=== PATIENT | male | born 1935 | race Caucasian/White ===

== ENCOUNTER 2023-08-31 12:05 | Inpatient (IN) | payer MEDICARE ==
[~2023-08-31] VITALS: Ht 175.3 cm; Wt 99.0 kg
[2023-08-31 12:55] LABS: BASOPHILS # (AUTO) 0.1 X10'3 (0-0.2); BASOPHILS % (AUTO) 0.6 % (0-1); EOSINOPHILS % (AUTO) 0.2 % (0-6); HEMATOCRIT 39.7 % (42.0-52.0); HEMOGLOBIN 12.8 g/dl (14.0-17.9); LYMPHOCYTES # (AUTO) 0.9 X10'3 (1.1-4.8); LYMPHOCYTES % (AUTO) 4.4 % (21-51); MEAN CORPUSCULAR HEMOGLOBIN 30.5 PG (27.0-31.0); MEAN CORPUSCULAR HGB CONC 32.2 g/dL (33.0-36.5); MEAN CORPUSCULAR VOLUME 94.6 FL (78-98); MEAN PLATELET VOLUME 9.3 FL (7.4-10.4); MONOCYTES # (AUTO) 1.3 X10'3 (0-0.9); MONOCYTES % (AUTO) 6.5 % (2-12); NEUTROPHILS # (AUTO) 17.7 X10'3 (1.8-7.7); NEUTROPHILS % (AUTO) 88.3 % (42-75); PLATELET COUNT 216 X10'3 (140-440); RED CELL DISTRIBUTION WIDTH 14.7 % (11.5-14.5)
[2023-08-31 13:18] LABS: ANION GAP 14 (8-16); BLOOD UREA NITROGEN 36 MG/DL (7-18); BUN/CREATININE RATIO 16.3 (10.0-20.0); CALCIUM 9.7 MG/DL (8.5-10.1); CHLORIDE 107 MMOL/L (99-107); CREATININE 2.21 MG/DL (0.60-1.10); GLUCOSE 177 MG/DL (70-104); POTASSIUM 5.1 MMOL/L (3.5-5.1); PRO BRAIN NATRIURETIC PEPTIDE 1697 PG/ML (0-450); SODIUM 144 MMOL/L (135-145); TOTAL CARBON DIOXIDE 23.3 MMOL/L (24-32); eCRCL 14 ML/MIN; eGFR 28 ML/MIN
[2023-08-31] MEDS: CefTRIAXone/D5W-Rocephin 1gm 50 ML IV ONE (13:42)
[2023-08-31 14:28] LABS: ALANINE AMINOTRANSFERASE 27 U/L (12-78); ALBUMIN 3.6 G/DL (3.4-5.0); ALBUMIN/GLOBULIN RATIO 0.9 (1.1-1.5); ALKALINE PHOSPHATASE 80 IU/L (46-116); ASPARTATE AMINO TRANSFERASE 20 U/L (10-37); BILIRUBIN,DIRECT 0.1 MG/DL (0-0.3); BILIRUBIN,TOTAL 0.6 MG/DL (0.1-1.0); THYROID STIMULATING HORMONE 1.13 ulU/ml (0.34-4.50); TOTAL PROTEIN 7.7 G/DL (6.4-8.2)
[2023-08-31 14:45] LABS: BILIRUBIN,URINE NEGATIVE (Neg); CLARITY,URINE SLIGHTLY CLOUDY (Clear); COLOR,URINE YELLOW (Yellow); GLUCOSE, URINE 500 mg/dl (Neg); KETONES,URINE NEGATIVE (Neg); LEUKOCYTE ESTERASE ,URINE SMALL (Neg); NITRITES, URINE NEGATIVE (Neg); OCCULT BLOOD,URINE NEGATIVE (Neg); PH,URINE 5.5 (4.8-8.0); PROTEIN,URINE NEGATIVE (Neg); UROBILINOGEN,URINE 0.2 E.U/dL (0.2-1.0)
[2023-08-31 14:52] LABS: UA COLLECTION TYPE URINAL
[2023-08-31 15:01] LABS: SQUAMOUS EPITHELIAL CELL,UR FEW /LPF (FEW)
[2023-08-31 15:02] LABS: WBC,URINE 30-50 /HPF (0-4)
[2023-08-31 15:03] LABS: BACTERIA,URINE 2+ /HPF (Neg)
[2023-08-31] MEDS: normal saline 1000ML IV soln IVB ONE ×2 (18:17)
[2023-08-31] MEDS ORDERED: ondansetron/PF 4mg/2ml inj IV PRN (18:25)
[2023-08-31] MEDS ORDERED: magnesium Cl slow-release 64mg tablet PO PRN (18:25)
[2023-08-31] MEDS ORDERED: potassium Cl 20 mEq SR tablet PO PRN ×2 (18:25)
[2023-08-31] MEDS ORDERED: magnesium 2GM in 50ml NS 50 ML IV PRN (18:25)
[2023-08-31] MEDS ORDERED: mag hydrox/Alum hydrox/simeth 30ml oral suspension PO PRN (18:25)
[2023-08-31] MEDS ORDERED: magnesium hydroxide 30ml (MOM) UD suspension PO PRN (18:25)
[2023-08-31] MEDS ORDERED: magnesium 4gm in 100ml NS 100 ML IV PRN (18:25)
[2023-08-31] MEDS ORDERED: potassium Cl 40MEQ/1/2NS 520ml 520 ML IV PRN (18:25)
[2023-08-31] MEDS ORDERED: dextrose 50%-water 50ml dispensing syringe IV PRN ×2 (18:55)
[2023-08-31] MEDS ORDERED: DEXTROSE 15 GM of carb/4 tabs (each vial/BOTTLE has 4 tablets) PO PRN ×2 (18:55)
[2023-08-31] MEDS ORDERED: glucagon, human recombinant 1mg kit SUBCUT PRN (18:55)
[2023-08-31 19:15] LABS: HEMOGLOBIN A1C 6.9 % (4.5-6.2)
[2023-08-31] MEDS: morphine 2 MG/ML inj. syringe IV ONE (19:25)
[2023-08-31] MEDS: PERFLUTREN PROTEIN-A MICROSPHR (Optison) 0.22 MG/ML 3ML VIAL IV ONE (19:53)
[2023-08-31] MEDS: piperacillin/tazo 3.375gm/50ml 50 ML IV SCH (20:00)
[2023-08-31] MEDS: K and/or MAG REPLACEMENT MC SCH (20:00)
[2023-08-31] MEDS: docusate sod 100mg capsule PO SCH (20:00)
[2023-08-31] MEDS: normal saline 1000ml 1,000 ML IV SCH (20:07)
[2023-08-31] MEDS: heparin, porcine 5000 units/ml vial SQ SCH (20:07)
[2023-08-31] MEDS: insulin glargine (Lantus) pen - multi-dose SQ SCH (21:00)
[2023-08-31 22:00] VITALS: BP 135/65; PULSE 80; RESP 12; TEMP 98.4; O2SAT 92
[2023-08-31] MEDS: aspirin 81mg tab.chew PO ONE (23:27)
[2023-08-31 23:34] VITALS: PULSE 83; RESP 18; O2SAT 94
[2023-09-01] VITALS (10 sets, daily range): BP systolic 120–151; BP diastolic 56–80; PULSE 60–76; RESP 13–20; TEMP 97.7–98.7; O2SAT 92–100
[2023-09-01] MEDS ORDERED: LISI40TA13 PO (01:48)
[2023-09-01] MEDS ORDERED: GLIM4TAB7 PO (01:48)
[2023-09-01] MEDS ORDERED: GABA800T11 PO (01:48)
[2023-09-01] MEDS ORDERED: FLO0.4C PO (01:48)
[2023-09-01] MEDS ORDERED: MELO-100 PO (01:48)
[2023-09-01] MEDS ORDERED: FURO40TA4 PO (01:48)
[2023-09-01] MEDS ORDERED: DILT120T14 PO (01:48)
[2023-09-01] MEDS ORDERED: DONE5TAB7 PO (01:48)
[2023-09-01] MEDS: insulin Lispro (HumaLOG) vial - multi-dose SQ SCH (07:00)
[2023-09-01 07:07] LABS: BASOPHILS % (AUTO) 0.2 % (0-1); EOSINOPHILS % (AUTO) 0.1 % (0-6); HEMATOCRIT 36.2 % (42.0-52.0); HEMOGLOBIN 11.7 g/dl (14.0-17.9); LYMPHOCYTES # (AUTO) 1.5 X10'3 (1.1-4.8); MEAN CORPUSCULAR HEMOGLOBIN 31.1 PG (27.0-31.0); MEAN CORPUSCULAR HGB CONC 32.4 g/dL (33.0-36.5); MEAN CORPUSCULAR VOLUME 95.9 FL (78-98); MONOCYTES # (AUTO) 1.3 X10'3 (0-0.9); MONOCYTES % (AUTO) 7.4 % (2-12); NEUTROPHILS # (AUTO) 15.4 X10'3 (1.8-7.7); NEUTROPHILS % (AUTO) 84.3 % (42-75); PLATELET COUNT 173 X10'3 (140-440); RED BLOOD COUNT 3.78 X10'6 (4.70-6.10); RED CELL DISTRIBUTION WIDTH 14.9 % (11.5-14.5); WHITE BLOOD COUNT 18.2 X10'3 (4.5-11.0)
[2023-09-01 07:33] LABS: ALBUMIN 3.3 G/DL (3.4-5.0); ANION GAP 10 (8-16); BLOOD UREA NITROGEN 37 MG/DL (7-18); BUN/CREATININE RATIO 19.3 (10.0-20.0); CALCIUM 8.6 MG/DL (8.5-10.1); CHLORIDE 109 MMOL/L (99-107); CHOL/HDL RATIO 3.2 (0.00-4.99); CHOLESTEROL 159 MG/DL (0-200); CREATININE 1.92 MG/DL (0.60-1.10); GLUCOSE 177 MG/DL (70-104); HDL CHOLESTEROL 49 MG/DL (35-60); LDL CHOLESTEROL 80 MG/DL (50-100); MAGNESIUM 2.1 MG/DL (1.5-2.4); PHOSPHORUS 2.8 MG/DL (2.3-4.5); POTASSIUM 4.8 MMOL/L (3.5-5.1); SODIUM 142 MMOL/L (135-145); TOTAL CARBON DIOXIDE 23.4 MMOL/L (24-32); TRIGLYCERIDES 180 MG/DL (20-135); eCRCL 27 ML/MIN; eGFR 33 ML/MIN
[2023-09-01] MEDS ORDERED: CefTRIAXone/D5W-Rocephin 1gm 50 ML IV SCH (08:00)
[2023-09-01] MEDS: donepezil 5mg tablet PO SCH (08:45)
[2023-09-01] MEDS: gabapentin 400mg capsule PO SCH (08:45)
[2023-09-01] MEDS: lisinopril 20mg tablet PO SCH (08:49)
[2023-09-01] MEDS: furosemide 40mg tablet PO SCH (08:49)
[2023-09-01] MEDS: tamsulosin 0.4mg capsule PO SCH (08:55)
[2023-09-01] MEDS: nystatin 15 GM powder TP SCH (20:49)
[2023-09-02] VITALS (9 sets, daily range): BP systolic 130–159; BP diastolic 71–86; PULSE 62–72; RESP 9–19; TEMP 97–97.9; O2SAT 92–97
[2023-09-02] MEDS: acetaminophen 325mg tablet PO PRN (04:38)
[2023-09-02 06:52] LABS: BASOPHILS # (AUTO) 0.1 X10'3 (0-0.2); BASOPHILS % (AUTO) 0.7 % (0-1); EOSINOPHILS # (AUTO) 0.2 X10'3 (0-0.9); EOSINOPHILS % (AUTO) 1.7 % (0-6); HEMATOCRIT 35.4 % (42.0-52.0); HEMOGLOBIN 11.4 g/dl (14.0-17.9); LYMPHOCYTES # (AUTO) 1.2 X10'3 (1.1-4.8); LYMPHOCYTES % (AUTO) 9.7 % (21-51); MEAN CORPUSCULAR HEMOGLOBIN 30.8 PG (27.0-31.0); MEAN CORPUSCULAR HGB CONC 32.3 g/dL (33.0-36.5); MEAN CORPUSCULAR VOLUME 95.4 FL (78-98); MEAN PLATELET VOLUME 9.7 FL (7.4-10.4); MONOCYTES # (AUTO) 0.9 X10'3 (0-0.9); MONOCYTES % (AUTO) 7.7 % (2-12); NEUTROPHILS # (AUTO) 9.7 X10'3 (1.8-7.7); NEUTROPHILS % (AUTO) 80.2 % (42-75); PLATELET COUNT 177 X10'3 (140-440); RED BLOOD COUNT 3.71 X10'6 (4.70-6.10); RED CELL DISTRIBUTION WIDTH 14.6 % (11.5-14.5)
[2023-09-02 07:09] LABS: ALBUMIN 3.1 G/DL (3.4-5.0); ANION GAP 9 (8-16); BLOOD UREA NITROGEN 36 MG/DL (7-18); BUN/CREATININE RATIO 19.1 (10.0-20.0); CALCIUM 8.8 MG/DL (8.5-10.1); CHLORIDE 105 MMOL/L (99-107); CREATININE 1.88 MG/DL (0.60-1.10); GLUCOSE 164 MG/DL (70-104); MAGNESIUM 2.1 MG/DL (1.5-2.4); PHOSPHORUS 2.4 MG/DL (2.3-4.5); POTASSIUM 4.3 MMOL/L (3.5-5.1); SODIUM 139 MMOL/L (135-145); TOTAL CARBON DIOXIDE 24.8 MMOL/L (24-32); eCRCL 28 ML/MIN; eGFR 34 ML/MIN
[2023-09-02] MEDS: gabapentin 300mg capsule PO SCH (07:25)
[2023-09-02] MEDS: insulin Lispro (HumaLOG) vial - multi-dose SQ SCH ×2 (13:42→17:00)
[2023-09-03 02:00] VITALS: BP 159/88; PULSE 64; RESP 18; TEMP 97.2; O2SAT 98
[2023-09-03 06:00] VITALS: BP 156/85; PULSE 56; RESP 16; TEMP 97.7; O2SAT 94
[2023-09-03 07:03] LABS: BASOPHILS % (AUTO) 0.4 % (0-1); EOSINOPHILS # (AUTO) 0.4 X10'3 (0-0.9); EOSINOPHILS % (AUTO) 4.5 % (0-6); HEMATOCRIT 36.8 % (42.0-52.0); HEMOGLOBIN 12.2 g/dl (14.0-17.9); LYMPHOCYTES # (AUTO) 1.4 X10'3 (1.1-4.8); LYMPHOCYTES % (AUTO) 16.3 % (21-51); MEAN CORPUSCULAR HEMOGLOBIN 31.4 PG (27.0-31.0); MEAN CORPUSCULAR HGB CONC 33.1 g/dL (33.0-36.5); MEAN CORPUSCULAR VOLUME 94.9 FL (78-98); MEAN PLATELET VOLUME 9.4 FL (7.4-10.4); MONOCYTES # (AUTO) 0.8 X10'3 (0-0.9); MONOCYTES % (AUTO) 9.3 % (2-12); NEUTROPHILS # (AUTO) 5.8 X10'3 (1.8-7.7); NEUTROPHILS % (AUTO) 69.5 % (42-75); PLATELET COUNT 203 X10'3 (140-440); RED BLOOD COUNT 3.88 X10'6 (4.70-6.10); RED CELL DISTRIBUTION WIDTH 14.6 % (11.5-14.5); WHITE BLOOD COUNT 8.4 X10'3 (4.5-11.0)
[2023-09-03 07:09] LABS: ALBUMIN 3.3 G/DL (3.4-5.0); ANION GAP 9 (8-16); BLOOD UREA NITROGEN 30 MG/DL (7-18); BUN/CREATININE RATIO 18.2 (10.0-20.0); CALCIUM 9.3 MG/DL (8.5-10.1); CHLORIDE 108 MMOL/L (99-107); CREATININE 1.65 MG/DL (0.60-1.10); GLUCOSE 138 MG/DL (70-104); MAGNESIUM 2.1 MG/DL (1.5-2.4); PHOSPHORUS 2.8 MG/DL (2.3-4.5); SODIUM 142 MMOL/L (135-145); TOTAL CARBON DIOXIDE 24.8 MMOL/L (24-32); eCRCL 32 ML/MIN; eGFR 40 ML/MIN
[2023-09-03 08:00] VITALS: RESP 15; O2SAT 96
[2023-09-03] MEDS ORDERED: FURO40TA4 PO (09:18)
[2023-09-03] MEDS ORDERED: LISI40TA13 PO (09:18)
[2023-09-03] MEDS ORDERED: LEVO250T74 PO (09:18)
[2023-09-03] MEDS ORDERED: DILT120T14 PO (09:18)
[2023-09-03 09:55] VITALS: PULSE 68; RESP 14; O2SAT 94
[2023-09-03 11:00] VITALS: BP 177/65; PULSE 70; RESP 15; TEMP 97.7; O2SAT 100
== END 2023-09-03 12:06 | disposition home health service (06) | DRG 698 ==
LOC: ER 12:05 → ED HOLD 18:25 → EDBEDREQ 20:20 → PCU 3S 21:25
PROVIDERS: ADMIT Family Medicine; ATTEND Family Medicine
DX: T83.518A Infection and inflammatory reaction due to other urinary catheter, initial encounter (principal); A41.9 Sepsis, unspecified organism; G93.41 Metabolic encephalopathy; I50.31 Acute diastolic (congestive) heart failure; N17.0 Acute kidney failure with tubular necrosis; N30.00 Acute cystitis without hematuria; G89.29 Other chronic pain; M54.9 Dorsalgia, unspecified; G47.30 Sleep apnea, unspecified; E11.42 Type 2 diabetes mellitus with diabetic polyneuropathy; I11.0 Hypertensive heart disease with heart failure; Z87.891 Personal history of nicotine dependence; Z99.81 Dependence on supplemental oxygen; B95.2 Enterococcus as the cause of diseases classified elsewhere
CPT/HCPCS: 36415; 71045; 80048; 80061; 80076; 81001; 82948; 83036; 83605; 83735; 83880; 84100; 84145; 84443; 84484; 85025; 87040; 87077; 87088; 87186; 93005; 93306; 93926; 94760; 97161; 97530; 99285; A4349; A5200; A6590; G0378; J0696; J1644; J1815; J2270; J2543; J7030

== ENCOUNTER 2023-09-14 14:40 | Emergency (ER) | payer MEDICARE ==
[~2023-09-14] VITALS: Ht 175.3 cm; Wt 93.6 kg
[~2023-09-14 14:40] MED LIST: DILT120T14 PO; DONE5TAB7 PO; FLO0.4C PO; FURO40TA4 PO; GABA800T11 PO; GLIM4TAB7 PO; LEVO250T74 PO; LISI40TA13 PO; MELO-100 PO
[2023-09-14] MEDS ORDERED: normal saline 1000ML IV soln IVB ONE (15:20)
[2023-09-14 16:05] LABS: BASOPHILS # (AUTO) 0.1 X10'3 (0-0.2); BASOPHILS % (AUTO) 1.1 % (0-1); EOSINOPHILS # (AUTO) 0.4 X10'3 (0-0.9); EOSINOPHILS % (AUTO) 5.5 % (0-6); HEMATOCRIT 34.3 % (42.0-52.0); HEMOGLOBIN 11.5 g/dl (14.0-17.9); LYMPHOCYTES # (AUTO) 1.5 X10'3 (1.1-4.8); LYMPHOCYTES % (AUTO) 19.3 % (21-51); MEAN CORPUSCULAR HEMOGLOBIN 31.5 PG (27.0-31.0); MEAN CORPUSCULAR HGB CONC 33.4 g/dL (33.0-36.5); MEAN CORPUSCULAR VOLUME 94.3 FL (78-98); MEAN PLATELET VOLUME 9.1 FL (7.4-10.4); MONOCYTES # (AUTO) 0.8 X10'3 (0-0.9); MONOCYTES % (AUTO) 9.5 % (2-12); NEUTROPHILS # (AUTO) 5.1 X10'3 (1.8-7.7); NEUTROPHILS % (AUTO) 64.6 % (42-75); PLATELET COUNT 279 X10'3 (140-440); RED BLOOD COUNT 3.64 X10'6 (4.70-6.10); RED CELL DISTRIBUTION WIDTH 14.4 % (11.5-14.5)
[2023-09-14 16:20] LABS: ALBUMIN 3.3 G/DL (3.4-5.0); ANION GAP 8 (8-16); CALCIUM 9.2 MG/DL (8.5-10.1); CHLORIDE 104 MMOL/L (99-107); GLUCOSE 256 MG/DL (70-104); POTASSIUM 4.5 MMOL/L (3.5-5.1); SODIUM 138 MMOL/L (135-145); TOTAL CARBON DIOXIDE 25.6 MMOL/L (24-32); eCRCL 26 ML/MIN; eGFR 32 ML/MIN
[2023-09-14 16:49] LABS: BLOOD UREA NITROGEN 41 MG/DL (7-18); BUN/CREATININE RATIO 20.5 (10.0-20.0)
[2023-09-14 17:29] VITALS: PULSE 61; RESP 14; TEMP 98.2; O2SAT 96
[2023-09-14 18:01] VITALS: BP 165/84
== END 2023-09-14 18:00 | disposition home or self-care (01) ==
LOC: ER 14:41
DX: E11.65 Type 2 diabetes mellitus with hyperglycemia (principal); G89.29 Other chronic pain; M54.9 Dorsalgia, unspecified
CPT/HCPCS: 36415; 80048; 82948; 84484; 85025; 93005; 99284

== ENCOUNTER 2024-06-24 23:59 | Emergency (ER) | payer MEDICARE, OTHER ==
[~2024-06-24] VITALS: Ht 175.3 cm; Wt 81.8 kg
[~2024-06-24 23:59] MED LIST changes: +ACET-1008 PO; +ASCO-10 PO; +ASPI-1264 PO; -DILT120T14 PO; +DILT180C66 PO; -FURO40TA4 PO; +GABA-1555 PO; -GABA800T11 PO; -GLIM4TAB7 PO; +INSU100V49 SUBCUT; -LEVO250T74 PO; -LISI40TA13 PO; +MELA5TAB12 PO; -MELO-100 PO; +PER5325T PO; +POLY119P2 PO
[2024-06-25] VITALS: TEMP 98
[2024-06-25] MEDS: HYDROcodone/acetaminophen 5mg/325mg tablet PO ONE (01:47)
[2024-06-25 03:26] VITALS: BP 142/72; PULSE 71; RESP 17; O2SAT 96
== END 2024-06-25 03:26 | disposition home or self-care (01) ==
LOC: ER 06-25
DX: M47.9 Spondylosis, unspecified (principal); E11.42 Type 2 diabetes mellitus with diabetic polyneuropathy; Z79.82 Long term (current) use of aspirin; Z79.4 Long term (current) use of insulin; Z79.899 Other long term (current) drug therapy; Z98.890 Other specified postprocedural states; W18.39XA Other fall on same level, initial encounter; Y93.89 Activity, other specified; Y92.89 Other specified places as the place of occurrence of the external cause; Y99.8 Other external cause status
CPT/HCPCS: 99285

== ENCOUNTER 2024-08-17 10:57 | Emergency (ER) | payer MEDICARE, OTHER ==
[~2024-08-17] VITALS: Ht 175.3 cm; Wt 98.9 kg
[~2024-08-17 10:57] MED LIST changes: -FLO0.4C PO; +TAMS-55 PO
[2024-08-17 11:53] LABS: BASOPHILS # (AUTO) 0.1 X10'3 (0-0.2); BASOPHILS % (AUTO) 0.7 % (0-1); EOSINOPHILS # (AUTO) 0.2 X10'3 (0-0.9); EOSINOPHILS % (AUTO) 1.5 % (0-6); HEMOGLOBIN 10.5 g/dl (14.0-17.9); LYMPHOCYTES # (AUTO) 1.6 X10'3 (1.1-4.8); LYMPHOCYTES % (AUTO) 14.4 % (21-51); MEAN CORPUSCULAR HEMOGLOBIN 27.9 PG (27.0-31.0); MEAN CORPUSCULAR HGB CONC 31.7 g/dL (33.0-36.5); MEAN CORPUSCULAR VOLUME 87.9 FL (78-98); MEAN PLATELET VOLUME 8.6 FL (7.4-10.4); MONOCYTES # (AUTO) 1.2 X10'3 (0-0.9); MONOCYTES % (AUTO) 10.8 % (2-12); NEUTROPHILS # (AUTO) 7.9 X10'3 (1.8-7.7); NEUTROPHILS % (AUTO) 72.6 % (42-75); PLATELET COUNT 200 X10'3 (140-440); RED BLOOD COUNT 3.76 X10'6 (4.70-6.10); RED CELL DISTRIBUTION WIDTH 19.1 % (11.5-14.5); WHITE BLOOD COUNT 10.9 X10'3 (4.5-11.0)
[2024-08-17 12:09] LABS: ALANINE AMINOTRANSFERASE 23 U/L (12-78); ALBUMIN 3.2 G/DL (3.4-5.0); ALBUMIN/GLOBULIN RATIO 0.8 (1.1-1.5); ALKALINE PHOSPHATASE 82 IU/L (46-116); ANION GAP 6 (8-16); ASPARTATE AMINO TRANSFERASE 13 U/L (10-37); BILIRUBIN,TOTAL 0.4 MG/DL (0.1-1.0); BLOOD UREA NITROGEN 32 MG/DL (7-18); BUN/CREATININE RATIO 19.5 (10.0-20.0); CALCIUM 8.9 MG/DL (8.5-10.1); CHLORIDE 107 MMOL/L (99-107); CREATININE 1.64 MG/DL (0.60-1.10); GLUCOSE 132 MG/DL (70-104); POTASSIUM 4.5 MMOL/L (3.5-5.1); SODIUM 142 MMOL/L (135-145); TOTAL CARBON DIOXIDE 29.4 MMOL/L (24-32); TOTAL PROTEIN 7.2 G/DL (6.4-8.2); eCRCL 31 ML/MIN; eGFR 40 ML/MIN
[2024-08-17 12:14] LABS: ANISOCYTOSIS 2+; ELLIPTOCYTES FEW; PLATELET ESTIMATE NORMAL; POLYCHROMASIA FEW
[2024-08-17 12:15] LABS: STOMATOCYTES FEW
[2024-08-17 13:41] LABS: BILIRUBIN,URINE NEGATIVE (Neg); CLARITY,URINE CLEAR (Clear); COLOR,URINE YELLOW (Yellow); GLUCOSE, URINE NEGATIVE (Neg); KETONES,URINE NEGATIVE (Neg); LEUKOCYTE ESTERASE ,URINE TRACE (Neg); NITRITES, URINE NEGATIVE (Neg); OCCULT BLOOD,URINE NEGATIVE (Neg); PROTEIN,URINE NEGATIVE (Neg); UROBILINOGEN,URINE 0.2 E.U/dL (0.2-1.0)
[2024-08-17 13:42] LABS: UA COLLECTION TYPE STRAIGHT CATH
[2024-08-17 13:48] LABS: BACTERIA,URINE FEW /HPF (Neg); MUCUS STRANDS NONE SEEN /LPF (Neg); RBC,URINE NONE SEEN /HPF (0-2); SQUAMOUS EPITHELIAL CELL,UR NONE SEEN /LPF (FEW)
[2024-08-17] MEDS ORDERED: CEPH-585 PO (15:11)
[2024-08-17] MEDS: cephalexin 250mg capsule PO ONE (15:33)
[2024-08-17 16:17] VITALS: O2SAT 98
[2024-08-17 18:04] VITALS: BP 147/89; PULSE 88; RESP 17
== END 2024-08-17 18:07 | disposition home or self-care (01) ==
LOC: ER 10:57
DX: L03.115 Cellulitis of right lower limb (principal); E11.9 Type 2 diabetes mellitus without complications; Z88.6 Allergy status to analgesic agent; Z79.82 Long term (current) use of aspirin
CPT/HCPCS: 36415; 71045; 73502; 80053; 81001; 83605; 84145; 85008; 85025; 87040; 87088; 93005; 93971; 99285; A4615; C1758